=== PATIENT | male | born 1985 | race African-American/Black ===

== ENCOUNTER 2020-05-11 10:52 | Emergency (ER) | payer BC, OTHER ==
[~2020-05-11 10:52] MED LIST: DOXYCYCLINE HY100 M2 PO; PROAIR HFA8.5 GM INH
== END 2020-05-11 12:35 | disposition left against medical advice (07) ==
LOC: ER1 10:52
DX: J02.9 Acute pharyngitis, unspecified (principal); Z88.6 Allergy status to analgesic agent
CPT/HCPCS: 99282

== ENCOUNTER 2020-05-19 21:17 | Emergency (ER) | payer BC ==
[2020-05-19] MEDS ORDERED: IBUPROFEN800 MG PO ×2 (23:36→23:39)
[2020-05-19] MEDS ORDERED: MEDROL DOSEPAK 24 MG PO (23:36)
[2020-05-19] MEDS ORDERED: PROAIR DIGIHAL90 MCG INH ×2 (23:36→23:39)
== END 2020-05-19 23:50 | disposition home or self-care (01) ==
LOC: ER1 21:17
DX: B34.9 Viral infection, unspecified (principal); Z20.822 Contact with and (suspected) exposure to COVID-19
CPT/HCPCS: 0240U; 87081; 87880; 99283

== ENCOUNTER → 2020-11-17 | Outpatient (CLI) | payer BC ==
[~2020-11-17] MED LIST changes: +IBUPROFEN800 MG PO; +MEDROL DOSEPAK 24 MG PO; +PROAIR DIGIHAL90 MCG INH
== END ==
LOC: RAD 12:49
DX: M25.512 Pain in left shoulder (principal); R07.9 Chest pain, unspecified
CPT/HCPCS: 71046; 73030

== ENCOUNTER 2021-05-28 10:55 | Emergency (ER) | payer BC | END 2021-05-28 13:41 | disposition home or self-care (01) | LOC: ER1 10:55 | DX: M79.642 Pain in left hand (principal); F17.290 Nicotine dependence, other tobacco product, uncomplicated; Z91.013 Allergy to seafood; Z91.041 Radiographic dye allergy status | CPT/HCPCS: 73110; 73130; 99283 ==